=== PATIENT | female | born 1985 | race African-American/Black ===

== ENCOUNTER 2018-06-08 22:20 | Emergency (ER) | payer MEDICAID ==
[~2018-06-08] VITALS: Ht 162.6 cm; Wt 90.9 kg
[2018-06-08 22:39] VITALS: BP 112/66; Ht 162.6 cm; Wt 90.9 kg
[2018-06-08 23:36] LABS: BASOPHILS 0.1 % (0-2); EOSINOPHILS 1.6 % (0-7); HEMATOCRIT 32.4 % (36.0-48.0); HEMOGLOBIN 10.4 g/dL (12-16); IMMATURE GRANULOCYTES 0.3 % (0-5); LYMPHOCYTES 25.4 % (15-50); MCH 25.9 pg (26.0-34.0); MCHC 32.1 g/dL (31.0-37.0); MCV 80.6 fL (80.0-100.0); MEAN PLATELET VOLUME 10.6 fL (7.4-10.4); MONOCYTES 5.1 % (2-11); NEUTROPHILS 67.5 % (40-80); PLATELET COUNT 233 10x3/uL (130-400); RBC 4.02 10x6/uL (4.00-5.40); RDW 14.2 % (11.5-14.5); WBC 7.5 10x3/uL (4.8-10.8)
[2018-06-08 23:49] LABS: APPEARANCE HAZY (CLEAR); BILIRUBIN NEGATIVE (NEGATIVE); COLOR YELLOW (YELLOW); GLUCOSE NEGATIVE (NEGATIVE); KETONE NEGATIVE (NEGATIVE); NITRITE NEGATIVE (NEGATIVE); PH 6.5 (5.0-6.0); PROTEIN NEGATIVE (NEGATIVE); SPECIFIC GRAVITY 1.015 (1.005-1.020); UROBILINOGEN NORMAL (NORMAL)
[2018-06-08 23:52] LABS: RED CELLS - URINE 0-5 /hpf (0-5)
[2018-06-08 23:52] LABS: ALBUMIN 3.1 g/dL (3.4-5.0); ALKALINE PHOSPHATASE 67 U/L (46-116); ALT (SGPT) 10 U/L (10-68); CALC OSMOLALITY 276 mosm/kg (275-300); CALCIUM 8.9 mg/dL (8.5-10.1); CARBON DIOXIDE 26.7 mmol/L (21.0-32.0); CHLORIDE - SERUM 105 mmol/L (98-107); CREATININE - SERUM 0.8 mg/dL (0.6-1.3); GLUCOSE 84 mg/dL (74-106); POTASSIUM - SERUM 3.2 mmol/L (3.5-5.1); PROTEIN - SERUM 7.5 g/dL (6.4-8.2); SODIUM 141 mmol/L (136-145); UREA NITROGEN 5 mg/dL (7-18); eGFR NON AFRICAN AMERICAN 89 mL/min (90-120)
[2018-06-08 23:53] LABS: AMORPHOUS SEDIMENT >1+ /lpf (NONE SEEN); BACTERIA MODERATE /hpf (NONE SEEN); GRANULAR CAST 0-5 /lpf (NONE SEEN); HYALINE CAST OCC /lpf (NONE SEEN); MUCUS >1+ /lpf (NONE SEEN)
[2018-06-09 00:27] LABS: HCG - QUANTITATIVE (MATERNAL) 28685 mIU/mL
== END 2018-06-09 00:54 | disposition left against medical advice (07) ==
LOC: D.ER 22:20
PROVIDERS: Emergency Medicine
DX: O26.851 Spotting complicating pregnancy, first trimester (principal); Z3A.14 14 weeks gestation of pregnancy; W01.0XXA Fall on same level from slipping, tripping and stumbling without subsequent striking against object, initial encounter; Y93.89 Activity, other specified; Y92.89 Other specified places as the place of occurrence of the external cause

== ENCOUNTER 2018-12-04 14:39 | Inpatient (IN) | payer MEDICAID ==
[~2018-12-04] VITALS: Ht 170.2 cm; Wt 103.4 kg
[2018-12-04 15:23] VITALS: BP 110/69; Ht 170.2 cm; Wt 103.4 kg
[2018-12-04 15:29] LABS: HEMATOCRIT 33.2 % (36.0-48.0); HEMOGLOBIN 10.7 g/dL (12-16); MCH 25.7 pg (26.0-34.0); MCHC 32.2 g/dL (31.0-37.0); MCV 79.8 fL (80.0-100.0); MEAN PLATELET VOLUME 11.3 fL (7.4-10.4); RBC 4.16 10x6/uL (4.00-5.40); RDW 16.7 % (11.5-14.5); WBC 8.3 10x3/uL (4.8-10.8)
[2018-12-04 16:37] LABS: APPEARANCE CLEAR (CLEAR); COLOR YELLOW (YELLOW); GLUCOSE NEGATIVE (NEGATIVE); KETONE NEGATIVE (NEGATIVE); NITRITE NEGATIVE (NEGATIVE); PROTEIN NEGATIVE (NEGATIVE); SPECIFIC GRAVITY 1.015 (1.005-1.020); UROBILINOGEN NORMAL (NORMAL)
[2018-12-04 16:38] LABS: BACTERIA MODERATE /hpf (NONE SEEN); BILIRUBIN NEGATIVE (NEGATIVE); RED CELLS - URINE 0-5 /hpf (0-5); WHITE CELLS - URINE 0-5 /hpf (0-5)
[2018-12-05 07:27] LABS: RAPID PLASMA REAGIN Non Reactive (Non Reactive)
[2018-12-06 15:15] VITALS: BP 93/58
--- NOTE | 2018-12-06 15:18 | NUR ---
RCVD PT FROM PACU. PT IS AAOX3. DENIES FEELING IN BLE AND DENIES PAIN AT THIS TIME. NS WITH 20 U PITOCIN SET TO INFUSE AT 125ML/HR. VSS. FUNDUS FIRM, 2/U WITH NO LOCHIA NOTED ON PERIPAD OR CHUCKS. STONE DRAINING TO GRAVITY. I.S. AT BEDSIDE. PT DENIES NEEDS. BED LOW, WHEELS LOCKED, CALL LIGHT AND PHONE WITHIN REACH, SIDE RAILS UP X2.
[2018-12-06 15:34] VITALS: BP 105/57
[2018-12-06 15:49] VITALS: BP 107/51
--- NOTE | 2018-12-06 15:50 | NUR ---
PT REPORTS PAIN 9/10 DESCRIBED CRAMPING. DILAUDID 2 MG AND TORADOL 30MG GIVEN SIVP PER ORDERS. SEE EMAR FOR ADMINISTRATION. PT TOLERATED WELL. DENIES FURTHER NEEDS AT THIS TIME.
[2018-12-06 16:19] VITALS: BP 97/55
[2018-12-06 16:34] VITALS: BP 101/63
--- NOTE | 2018-12-06 16:36 | NUR ---
PAIN REASSESSMENT COMPLETED. PT RATES PAIN 2/10 AND TOLERABLE. FUNDUS FIRM, 2/U. QUARTER SIZE CLOT NOTED SITTING ON PERIPAD. PAD CHANGED. NO POOLING OF BLOOD NOTED UNDER PT OR EXPRESSED ON MASSAGE. INFANT TRANSPORTED TO ROOM VIA OPEN CRIB PER FOB AT THIS TIME. PT DENIES FURTHER NEEDS. WILL CONT. TO MONITOR.
--- NOTE | 2018-12-06 17:05 | NUR ---
ROUNDS MADE. PT DENIES NEEDS. FUNDUS REMAINS FIRM, ML, U/U. NO CLOTS EXPRESSED ON MASSAGE. SCANT LOCHIA RUBRA NOTED TO PERIPAD. PAD CHANGED.
--- NOTE | 2018-12-06 18:26 | NUR ---
ROUNDS MADE. PT DENIES PAIN OR NEEDS. WILL CONTINUE TO MONITOR.
--- NOTE | 2018-12-06 19:08 | NUR ---
ICE WATER AND APPLE JUICE PROVIDED PER PT REQUEST. FRESH ICE PACK PLACED ON ABD. SCD'S CONNECTED TO PUMP AND PUMP FUNCTIONING PROPERLY. PT DENIES FURTHER NEEDS AT THIS TIME.
[2018-12-06 19:49] VITALS: BP 114/62
--- NOTE | 2018-12-06 19:49 | NUR ---
INTO ROOM FOR PT. ASSESSMENT. PT. LYING ON BACK WITH HOB AT 30 DEGREES. PT. CHEERFUL AND VISITING WITH FRIENDS AND FAMILY IN ROOM. INFANT IN ROOM BEING HELD BY DIFFERENT VISITORS. STONE PATENT AND DRAINING. SCDS ON AND FUNCTIONAL. ABD. DRESSING DRY AND INTACT. LOCHIA RUBRA SCANT. BREATH SOUNDS CLEAR AND BOWEL SOUNDS HYPOACTIVE. ICE CAP NOTED TO DRESSING. PT. ENCOURAGED TO COUGH AND DEEP BREATH. RATES PAIN A 7 OF 10 ON PAIN SCALE. PT. ASLEEP AT INTERVALS. ENCOURGED PT. TO EAT CLEAR LIQUIDS AND DRINK. REQUESTED JELLO AND APPLEJUICE. SAME SERVED.
--- NOTE | 2018-12-06 19:58 | NUR ---
DILAUDID 2MG GIVEN SLOW IVP OVER 2 MINUTES. STONE DRAINAGE BAG EMPTIED OF 500CC OF CONCENTRATED URINE. INCENTIVE SPIROMETER PRESENTED TO PT. . STARTED TO GIVE PT. INSTRUCTIONS AND PT. STATED THAT SHE KNEW HOW TO USE ALREADY. HANDED DEVICE TO PT. AND PT. GAVE RETURN DEMONSTRATION AND ACHIEVED UP TO 2000 ON METER. ENCOURAGED TO USE HOURLY WHILE AWAKE. PT. STATED UNDERSTANDING. ADDITIONAL JELLO SERVED TO PT. ENCOURAGE PT. TO TRY AND REST WHILE COMPANY IS OUT OF ROOM. STATES SHE IS SLEEPY AT THIS TIME AND REQUESTED LIGHTS DIMMED. SAME DONE. SIDE RAILS UP X2 AND CALL LIGHT WITHIN REACH.
--- NOTE | 2018-12-06 20:36 | NUR ---
INTO PT. ROOM WITH INFUSION PUMP ALARMING. PT. LYING WITH EYES CLOSED AND RESPIRATIONS UNLABORED. INFUSION PUMP CHECKED AND RESTARTED. PT. DOES NOT AROUSE TO THIS NURSE IN ROOM.
--- NOTE | 2018-12-06 21:20 | NUR ---
PT. ASLEEP BUT AWAKENED TO THIS NURSE IN ROOM. INFORMED PT. THAT SHE NEEDED TO CHANGE POSITIONS FROM BACK TO LT SIDE. MINIMAL ASSISTANCE NEEDED. SUPPORTED WITH PILLOWS. WHEN PT. TURNED SHE STATED THAT SHE FELT SOMETHING VAGINAL COMING OUT. DONALD PAD CHANGED WITH BLOOD CLOTS NOTED ON PAD. PAD WAS NOT SATURATED.
--- NOTE | 2018-12-06 22:05 | NUR ---
LYING IN LT TILT. HOLDING AND FEEDING HER A BOTTLE OF FORMULA.
--- NOTE | 2018-12-06 22:46 | NUR ---
MALE IN ROOM HOLDING . TORADOL GIVEN IVP OVER 2 MINUTES. RATES PAIN 0 OF 10 AT THIS TIME. ADDITIONAL JELLO SERVED TO PT. SCDS ON AND FUNCTIONAL. STONE PATENT AND DRAINING. PT. REMARKS THAT SHE IS TIRED OF BEING IN THE BED. INFORMED OF POC FOR REMOVAL OF STONE AND SALINE LOCKING IV. PT. STATES UNDERSTANDING. ENCOURAGED USE OF INCENTIVE SPIROMENTER AND PT. ABLE TO ACHIEVE UP TO 2000 X2 . ICE CAP REFILLED TO PLACE ON ABD. DRESSING AREA.
--- NOTE | 2018-12-06 23:20 | NUR ---
100CC IN URINE METER. PT. DENIES ANY PAIN AT THIS TIME. MALE CONTINUES TO HOLD INFANT ON SOFA. SCDS ON AND FUNCTIONAL.
[2018-12-07] VITALS (7 sets, daily range): BP systolic 105–122; BP diastolic 62–72
--- NOTE | 2018-12-07 00:02 | NUR ---
PT. SITTING UP IN BED WITH HOB AT 45 DEGREES, PUMPING BREAST. VITAL SIGNS OBTAINED. PT. ASKED AGAIN ABOUT WHEN SHE WOULD BE UP WALKING. DISCUSSED WITH PT. AGAIN ABOUT THE PLAN FOR SALINE LOCKING IV AND TAKING STONE CATH. OUT. AND A TIMEFRAME GIVEN. PT. STATES UNDERSTANDING. MALE STILL IN ROOM WITH PT. INFANT IN NBN FOR THE NIGHT PER PT. REQUEST.
--- NOTE | 2018-12-07 01:55 | NUR ---
PT. ASLEEP AND AWAKENED TO CONVERT IV TO SALINE LOCK. STONE CATH. DISCONTINUED WITH ADDITIONAL 250CC OUTPUT IN URINE METER. PT. C/O CRAMPING WHEN SHE AWAKENS AND ASKING FOR PAIN MED. DONALD PAD WITH MOD. LOCHIA AND CHANGED.
--- NOTE | 2018-12-07 02:10 | NUR ---
WHEN THIS NURSE ENTERS ROOM , PT. ASLEEP AGAIN AND AWAKENED FOR PAIN MED THAT SHE REQUESTED FOR A PAIN SCORE OF 9 FO 10. ICE WATER PROVIDED. PAIN MEDICATION GIVEN ORDERED. SIDE RAILS UP X 2. PT. INFORMED THAT SHE IS TO USE CALL LIGHT WHENEVER SHE NEEDS TO GET UP TO BATHROOM. CALL LIGHT POSITIONED WITHIN EASY REACH ON BEDSIDE TABLE. PT. TOLD WHERE CALL LIGHT LOCATED AND STATES UNDERSTANDING TO INSTRUCTIONS GIVEN. SCDS ON AND FUNCTIONAL.
--- NOTE | 2018-12-07 03:55 | NUR ---
PT. LYING ON BACK WITH HOB AT 30 DEGREES. EYES CLOSED AND RESPIRATIONS UNLABORED. PT. AWAKENED BY CALLING HER NAME. VITAL SIGNS OBTAINED. PT. BACK TO SLEEP PRIOR TO COMPLETION OF VITAL SIGNS. SIDE RAILS UP X 2 AND CALL LIGHT WITHIN REACH.
[2018-12-07 06:07] LABS: BASOPHILS 0.2 % (0-2); EOSINOPHILS 0.4 % (0-7); HEMATOCRIT 27.6 % (36.0-48.0); HEMOGLOBIN 8.7 g/dL (12-16); IMMATURE GRANULOCYTES 0.2 % (0-5); LYMPHOCYTES 14.8 % (15-50); MCH 25.6 pg (26.0-34.0); MCHC 31.5 g/dL (31.0-37.0); MCV 81.2 fL (80.0-100.0); MEAN PLATELET VOLUME 10.5 fL (7.4-10.4); MONOCYTES 5.2 % (2-11); NEUTROPHILS 79.2 % (40-80); RDW 16.4 % (11.5-14.5); WBC 9.2 10x3/uL (4.8-10.8)
[2018-12-07 06:10] LABS: PLATELET COUNT 160 10x3/uL (130-400)
--- NOTE | 2018-12-07 07:19 | NUR ---
ASSUME CARE OF THIS PATIENT. SHIFT ASSESSMENT COMPLETED. C/O / ABDOMINAL CRAMPING. 2/U FIRM MIDLINE, RUBRA MOD ON CURRENT DONALD-PAD. PLANS . INFANT IN NURSERY. CURRENTLY LAYING TOWARD LEFT SIDE. SAYS SHE HAS BEEN CHANGING POSITIONS NEEDED. SCDS REMOVED AT THIS TIME IN PREPARATION FOR AMBULATION.
--- NOTE | 2018-12-07 07:30 | NUR ---
PERCOCET 10 MG GIVEN PO AFTER DISCUSSING PAIN MANAGEMENT OPTIONS. ASSISTED UP TO BATHROOM TO VOID. FRANK OK WITH SLIGHT TEARS, ENCOURAGEMENT GIVEN. VOIDED 400 ML URINE WITH SEVERAL < 1 CM BLOOD CLOTS NOTED. PARTIAL LINEN CHANGE COMPLETED. DESIRES TO SIT ON COUCH TO FEED IN THIS TIME. CALL LIGHT PLACED IN REACH. TO CALL IF NEEDING ANYTHING.
--- NOTE | 2018-12-07 08:23 | NUR ---
SITTING ON COUCH HOLDING . SAYS HER PAIN IS GETTING BETTER NOW 05/11. NO REQUESTS.
--- NOTE | 2018-12-07 10:04 | NUR ---
RETURNED TO BED, TO NURSERY. DESIRES TO TAKE SHOWER BUT WILL REST AT THIS TIME. SAYS HER PAIN IS ABOUT 6 "I'M DOING OK RIGHT NOW". SIDE RAILS UP X 2, CALL LIGHT IN REACH.
--- NOTE | 2018-12-07 10:20 | NUR ---
DR DORANTES HERE AND VISITED PT. V.O. RECIEVED TO CHANGE TORADOL TO PO INSTEAD OF IVP.
--- NOTE | 2018-12-07 10:30 | OP ---
PATIENT NAME: MICKI INFANTE MEDICAL RECORD: [id number] :86 LOCATION:[id number] ADMISSION DATE:12/04/18 SURGEON: AVINASH DORANTES MD DATE OF OPERATION: 12/06/2018 PREOPERATIVE DIAGNOSES: 1. at 39 weeks gestations. 2. Nonreassuring tracing. 3. Meconium stained fluid. 4. Undesired fertility. POST-DELIVERY DIAGNOSES: 1. at 39 weeks gestations. 2. Nonreassuring tracing. 3. Meconium stained fluid. 4. Mother delivered. 5. Tight nuchal cord. 6. Undesired fertility. PROCEDURES: 1. Primary low transverse section. 2. Bilateral tubal ligation using a [place] technique. SURGEON: Avinash Dorantes MD DOUBLE NEEDLE OPERATOR LOCKSTITCH: Jc Cyr. ANESTHESIA: Continuous lumbar epidural. FINDINGS: Viable female infant, tight nuchal cord times 1. Vertex presentation, Apgars 9 and 9, weight 7 pounds 10 ounces. Placenta is unremarkable. Fluid is meconium stained. The tubes, ovaries, and uterus unremarkable. SPECIMENS REMOVED: 1. Placenta. 2. Bilateral tubes. SPECIMEN DISPOSITION: 1 and 2 to pathology. ESTIMATED BLOOD LOSS: 800 cc. FLUIDS: 1000 cc of lactated Ringer's. URINE OUTPUT: 500 cc of clear urine. COMPLICATIONS: None. DRAINS: [place] to gravity. COMPLICATIONS: None. INDICATIONS: The patient is a 33-year-old female being induced at term. The patient has had repetitive late decelerations and bradycardic event. The patient is counseled and is undergoing a primary section for OPERATIVE REPORT [id number] MICKI INFANTE intolerance to labor. The patient also has undesired fertility. Risks, benefits, and alternatives to tubal have been described. The patient understood all risks and benefits and wishes to proceed. DESCRIPTION OF PROCEDURE: After informed consent was assured, the patient was taken to the operating room where anesthetic was obtained without difficulty. The patient now prepped and draped in the usual sterile fashion. Anesthetic was assessed and found to be adequate. A low transverse incision was made and the abdomen was entered using a Pelosi technique. An Hosea O ring was inserted and tightened. A low transverse hysterotomy was performed after development of a bladder flap. was delivered on to the abdomen atraumatically. Cord was doubly clamped and cut and was passed to the attendant. The placenta was delivered via Crede maneuver. Uterus exteriorized, cleared of all clots and debris and closed with a running locked stitch of chromic. [id number] stitches were applied along the lower segment. Due to the oozing along the peritoneal edges and unsatisfactory hemostasis, potato dust was placed on the hysterotomy incision and hemostasis was obtained. The uterus was deflected forward and the right tube identified, elevated with [place] clamp and a window developed in the antimesenteric portion. Two ligatures were passed through here, tied proximally and distally and the intervening segments of tube were removed. Ostium was cauterized. This was repeated on the contralateral side. Again, a window was developed with 2 ligatures placed and tied. The segment of tube was excised and the ostium cauterized. Uterus was now returned to the abdomen. Inspection of the stumps revealed adequate hemostasis. Peritoneum was reapproximated in the midline. The fascia was closed with a running stitch of looped PDS. Subcutaneous tissues were irrigated, bleeding vessels cauterized, and the skin was reapproximated with lauren. Sterile dressing is applied. Sponge, lap, and needle counts were correct times 2. TRANSINT:[id number] Voice Confirmation ID: [id number] DOCUMENT ID: [id number] AVINASH DORANTES MD at 1030 CC: [id number] DICTATION DATE: 12/06/18 1438 ROOF FITTER: 12/06/182031 ADM IN [facility] [address] [id number]
--- NOTE | 2018-12-07 11:55 | NUR ---
SITTING UP IN BED. AND VISITORS IN ROOM. STILL WITH 6/10 ABD CRAMPING STATES "I'M OK. I DON'T NEED ANYTHING" WHEN ASKED IF SHE NEEDED PAIN MEDICATION. ENCOURAGED NOT TO WAIT UNTIL PAIN GETS TO BAD, EXPLAINING THAT SOMETIMES IT WILL TAKE LONGER TO HELP. VERBALIZED UNDERSTANDING AND WILL ASK IF ANY MEDICATION IS NEEDED. PLANS LUNCH, SHOWER AND AMBULATION IN [place]. INCENTIVE SPIROMETER USED X 3. SAYS SHE HAS BEEN USING "BUT NOT LATELY". UP AD KARLA TO BATHROOM. SIDERAILS UP X 2, CALL LIGHT IN REACH.
--- NOTE | 2018-12-07 13:17 | NUR ---
REQUESTED PAIN MEDICATION AND TO SHOWER. C/0 8/10 UPPER ABDOMINAL CRAMPING. ENCOURAGE AMBULATED AND TALKED ABOUT PASSING GAS AND METHODS TO HELP RELIEVE. PERCOCET 10 MG GIVEN PO. ITEMS GIVEN FOR SHOWER. WILL ASSIST WITH REMOVING OF DRESSING WHILE IN SHOWER. LINEN CHANGE FINISHED.
--- NOTE | 2018-12-07 13:20 | NUR ---
VOIDED 650 ML URINE, SLIGHTLY BLOOD TINGE FROM LOCHIA.
--- NOTE | 2018-12-07 14:30 | NUR ---
AMBULATED IN [place] TO NURSERY. TOLERATED WELL. NO REQUESTS.
--- NOTE | 2018-12-07 15:30 | NUR ---
UP IN ROOM. SAYS PAIN IS A LITTLE BETTER 5/10. "I'M OK WHEN I'M NOT MOVING". IN ROOM, VISITORS AT BEDSIDE. SIDE RAILS UP X 2. CALL LIGHT IN REACH. REQUESTED JELLO WHICH WAS GIVEN.
--- NOTE | 2018-12-07 16:13 | NUR ---
1/U FIRM MIDLINE, INCISION INTACT WITH SHARA, WITHOUT ERRYTHEMA OR DRAINAGE. INSTRUCTED ON USE OF DONALD-PAD OVER INCISION AND TO CHANGE FREQ. VS OBTAINED. NOTED FLUCTUATION IN HR BETWEEN 109-123. PT SAYS SHE OCCASIONALLY FEELS SOB BUT CANNOT DETERMINE IF HER HR IS FEELING FAST. DR DORANTES NOTIFIED. ORDERS RECEIVED FOR EKG. PT UP AD KARLA. VISITORS IN ROOM. IN ROOM, DENIES NEEDING ANYTHING. RATES PAIN 5/10. "I'M OK WHEN I'M NOT MOVING AROUND ALOT."
--- NOTE | 2018-12-07 16:53 | NUR ---
SCHEDULED TORADOL GIVEN. SAYS SHE IS TRYING NOT TO TAKE MEDICATION. SAYS THE PAIN IS IN UPPER ABDOMEN, NOT PASSING GAS, ENCOURAGED TO AMBULATE AND TALKED ABOUT LAYING IN LLD POSITION. OFFERED TO GET ORDER FOR SIMETHICONE. DECLINES AT THIS TIME. IN BED WITH HER AT THIS TIME. HAS BEEN BOTTLEFEEDING. SIDE RAILS UP X 2, CALL LIGHT IN REACH.
--- NOTE | 2018-12-07 16:53 | NUR ---
SALINE LOCK WOULD NOT FLUSH, UNABLE TO GET BLOOD RETURN. SALINE LOCK DC'D AT THIS TIME. INSTRUCTED PT THAT IF IV WAS NEEDED THEN WILL RESTART. CURRENTLY NOT ON IV MEDS OR IV FLUIDS.
--- NOTE | 2018-12-07 17:18 | NUR ---
RESPIRATORY THERAPY HERE TO DO EKG.
--- NOTE | 2018-12-07 17:46 | NUR ---
ACTIVE BS X 4, ABD SOFT, SLIGHT UPPER TYMPANY, POSITIONED TO LEFT SIDE WITH RIGHT LEG PULLED UP. BURPED AFTER POSITIONING. CONTACTED DR DORANTES WITH RESULTS OF EKG. ALSO INFORMED OF GAS PAIN, ORDERS RECEIVED. INFANT IN CRIB AND PLACED AT BEDSIDE. SIDE RAILS UP X 2, CALL LIGHT IN REACH.
--- NOTE | 2018-12-07 18:10 | NUR ---
SITTING UP IN BED INFANT. STATES "JUST I WAS ABOUT TO PASS GAS SHE STARTED CRYING SO I HAD TO GET UP". REMINDED THAT SIMETHICONE IS AVAILABLE IF NEEDED AND ENCOURAGED TO TRY LLD WHEN DONE FEEDING INFANT. REQUESTED JELLO WHICH WAS GIVEN. FRESH WATER AT BEDSIDE.
--- NOTE | 2018-12-07 19:14 | NUR ---
PT. AWAKE AND ORIENTED. HOLDING WHICH IS SLEEPING. CHEERFUL. BREATH SOUNDS CLEAR AND BOWEL SOUNDS ACTIVE. PT. REPORTS THAT SHE HAS NOT PASSED "GAS" YET BUT FEELS IT WILL HAPPEN SOON. STATES SHE HAS BEEN WALKING TODAY. ENCOURAGED A WALK IN THE HALLWAY PRIOR TO GOING TO BED FOR THE NIGHT. RATES PAIN A 6 OF 10 BUT STATES "I KNOW THAT IT IS JUST GAS". DISCUSS WITH PT. THAT SHE HAS SIMETHICONE ORDERED AND ASKED IF SHE WOULD LIKE TO TRY TAKING ONE FOR RELIEF. PT. RECEPTIVE. PT. STATES THAT SHE PLANS TO GET UP AND WALK IN ROOM ALSO. DENIES ANY PAIN IN LOWER EXTREMITIES. ABD. INCISION WITHOUT REDNESS NOR DRAINAGE. SHARA NOTED INTACT. ABD. SOFT TO TOUCH.
--- NOTE | 2018-12-07 19:25 | NUR ---
[employer] ARCHITECT CALLED AND INFORMED OF NEED FOR SIMETHICONE FOR PT.
--- NOTE | 2018-12-07 19:28 | NUR ---
PT. INFORMED THIS NURSE WAS WAITING FOR BENEFITS CLERK TO BRING HER MEDICATION. PT. STANDING BESIDE BED AND STATES UNDERSTANDING.
--- NOTE | 2018-12-07 20:25 | NUR ---
PT. STANDING BESIDE BED. SMILES AND REPORTS THAT SHE IS "PASSING GAS SINCE LAST MEDICATION GIVEN. LOTS OF IT". DENIES ANY NEEDS AT THIS TIME.
--- NOTE | 2018-12-07 21:58 | NUR ---
PT. SITTING ON SIDE OF BED HOLDING . STATES THAT GAS FELT LIKE IT WAS COMING BACK AFTER EATING SALAD. PLANS TO LIE ON SIDE AFTER INFANT IS CONSOLED. JELLO SERVED. DENIES ANY FURTHER NEEDS.
--- NOTE | 2018-12-07 22:51 | NUR ---
PT. REPORTS THAT SHE IS HAVING ABD. DISCOMFORT AND DESIRES PAIN MEDICATION. RATES PAIN A 7 OF 10 ON PAIN SCALE. STATES SHE FEELS THAT SHE WAITED TO LONG TO TAKE MEDS. VITAL SIGNS OBTAINED. ASLEEP IN OPEN CRIB AT BEDSIDE. DISCUSSED WITH PT. , MEDICATIONS THAT ARE ORDERED TO INCLUDE SLEEP AID. PT. STATES THAT SHE WOULD LIKE TO TAKE THE AMBIEN.
--- NOTE | 2018-12-07 22:54 | NUR ---
PAIN MED AND TORADOL GIVEN ORDERED. DISCUSSED WITH PT. THAT SIMETHICONE IS DUE AT 2330 AND THIS NURSE WOULD ALSO BRING AMBIEN AT THAT TIME. INFORMED PT. THAT WOULD PREFER NOT TO GIVE THE AMBIEN AT THE SAME TIME THE PERCOCET 10MG. PT. STATED UNDERSTANDING. OFFERED TO PLACE SCDS ON PT. LEGS. PT. INQUIRED WHY THE SCDS ARE IMPORTANT. INFORMED OF THE REASON FOR THE SCDS AND PT. STATES THAT SHE DOES NOT FEEL THAT SHE NEEDS THEM AND SHE HAS BEEN VERY ACTIVE TODAY AND ALSO GETTING UP TO BATHROOM. INFORMED PT. THAT AT ANY TIME THAT SHE CHANGES HER MIND, THIS NURSE WOULD GLADLY APPLY SCD SLEEVES FOR HER. PT. STATED UNDERSTANDING. INFANT TO NBN PER PT. REQUEST.
--- NOTE | 2018-12-07 23:35 | NUR ---
PT. REPORTS THAT PAIN IS 2 OF 10 AT THIS TIME AND SHE IS SLIGHTLY DROWSY. INQUIRED IF PT. STILL DESIRED AMBIEN AND PT. RESPONDED THAT SHE DID . AMBIEN AND MYLICON ADMINISTERED ORDERED. SIDE RAILS UP X 2. CALL LIGHT WITHIN REACH. ENCOURAGED PT. TO LIE ON HER SIDES AND NOT HER BACK. PT. STATES UNDERSTANDING TO ALL INSTRUCTIONS. ENCOURAGED PT. TO CONTINUE HER VITAMINS ORDERED UNTIL SEEN BY MD IN OFFICE, HAVE SOMEONE TO HELP HER IN THE HOME FOR THE FIRST WEEK AND FOR HER TO TRY AND REST WHENEVER THE BABY WAS SLEEPING. PT. ASKED QUESTION ABOUT THE BEST WAY TO GET IN AND OUT OF BED SINCE THE HEAD OF HER BED DOES NOT RAISE. DISCUSSED TURNING TO HER SIDE AND USE HER ELBOW TO HELP PUSH HER UP AND TO USE PILLOWS TO PROP HER UP FOR COMFORT WHILE SLEEPING. PT. STATED UNDERSTANDING TO ALL. PT. STATES SHE DOES NOT HAVE A RECLINER AT HOME. LIGHTS DIMMED IN ROOM PER PT. REQUEST. ICE WATER REFILLED FOR PT.
--- NOTE | 2018-12-08 01:20 | NUR ---
LYING ON LT SIDE WITH EYES CLOSED. RESPIRATIONS UNLABORED.
[2018-12-08 03:05] VITALS: BP 98/83
--- NOTE | 2018-12-08 03:05 | NUR ---
PT. AWAKENED FOR VITAL SIGNS. LYING ON LT SIDE. AWAKE ONLY BRIEFLY AND BACK TO SLEEP. CONTINUES LYING ON LT SIDE. TV REMAINS ON IN ROOM WITH VOLUME MODERATELY LOUD. SIDE RAILS UP X 2. CALL LIGHT WITHIN REACH.
--- NOTE | 2018-12-08 04:25 | NUR ---
LYING ON LT SIDE WITH EYES CLOSED. RESPIRATIONS UNLABORED.
--- NOTE | 2018-12-08 05:20 | NUR ---
PT. AWAKENED FOR TORADOL ADMINISTRATION. PT. AWAKE BRIEFLY AND RETURNED TO SLEEP. POSITIONED ON LT SIDE. RESPIRATIONS UNLABORED.
[2018-12-08 07:56] VITALS: BP 110/64
--- NOTE | 2018-12-08 08:09 | NUR ---
ASSESSMENT DONE. PT UP AND ABOUT IN ROOM. VERBAL RESPONSES APPRO TO QUESTIONS. STATES THAT IS PASSING FLATUS. WHEN QUESTIONED -RATES PAIN A 6 ON SCALE OF 0-10. PT STATES THAT SHE WOULD LIKE PAIN MEDICACATION WHEN QUESTIONED. INCISION APPEARANCE WNL.
--- NOTE | 2018-12-08 09:30 | NUR ---
denies needs. up and about in room. states that pain is better- rates 2 on scale of 0-10.
--- NOTE | 2018-12-08 10:26 | NUR ---
Ranjana Connolly 12/08/17 LE@ 9:25 S: Patient states she has been giving both breast and bottle because her milk isn't in yet. Denies questions or concerns. Preferred to give formula for this feeding. Verbally agrees to ask nursery staff for help as needed with . Thanked CLC for advice and checking up with her regarding . O: Patient sitting up in bed providing formula for feeding. FOB sleep on sofa. Asked how can I help with ? Explained normal feeding patterns, breastmilk composition, benefits of skin to skin, feeding cues, position, and how to verify is latched correctly at the breast. does take time, practice, and patience in the beginning. It is normal to be concern about what is taking in when at the breast. being content following feedings and wet/dirty diapers are a sign infant is getting enough. Your body will continue to make what infant needs as long as is placed to the breast for every feeding. Supply and demand what baby takes out your body will make more of. Every missed feeding at the breast tells your body milk isn't needed at that time. Your body will adjust to accommodate how often is placed to the breast. Since infant is getting colostrum right now, your body only needs small amount to satisfy . This amount will increase by volume for feeding to meet needs. Reassured patient her body is making colostrum for . Please ask for help as needed with , including latching. A: Patient feeding preference is both formula and breast due to "her milk isn't in yet. P: Continue to promote during hospital visit. Valerie Chapa, [facility]
--- NOTE | 2018-12-08 10:59 | NUR ---
pt questioning when dr rowan will be making rounds- explained that dr rowan is also doing surg today but will make rounds. ask if she would like to shower- towels provided.
[2018-12-08] MEDS ORDERED: PERCOCET 7.5/321 TAB PO (12:57)
[2018-12-08] MEDS ORDERED: IBUPROFEN800 MG PO (13:14)
--- NOTE | 2018-12-08 13:50 | NUR ---
THIS RN TO PT'S ROOM FOR DISCHARGE TEACHING. MULTIPLE VISITORS AT BEDSIDE. INCISION CARE TEACHING PERFORMED, SIGNS AND SYMPTOMS TO REPORT REVIEWED, PRESCRIPTIONS FOR MOTRIN 800MG TO BE TAKEN EVERY 8HRS FOR THE NEXT 2 DAYS AND THEN Q 8HRS PRN FOR PAIN, PERCOCET 7.5MG TO BE TAKEN EVERY 6 HRS NEEDED FOR PAIN. FOLLOW UP APPOINT CARD PROVIDED W/SCHEDULED APPT. POST DELIVERY WARNING SIGNS INFO PROVIDED. FOLLOW [facility] INFO GIVEN. DISCHARGE PAPERS PROVIDED W/TEACHING. SIGNED COPY OBTAINED. COPY OF PRESCRIPTIONS PLACED ON PT'S CHART. PT VERBALZIES UNDERSTANDING OF DISCHARGE INSTRUCTIONS, PATIENT AND FAMILY DENY QUESTIONS AT THIS TIME. REQUEST MADE THAT PATIENT RING HER CALL LIGHT WHEN SHE IS READY FOR DISCHARGE. PT IS AGREEABLE.
--- NOTE | 2018-12-08 14:20 | NUR ---
discharged with infant- to auto via w/c per sefeirno infante rn.
== END 2018-12-08 14:20 | disposition home or self-care (01) | DRG 785 ==
LOC: D.LD 14:39
PROVIDERS: ADMIT Obstetrics & Gynecology
PROC: 10D00Z1 Extraction of Products of Conception, Low, Open Approach (ICD-10-PCS; 2018-12-06)
PROC: 0UT70ZZ Resection of Bilateral Fallopian Tubes, Open Approach (ICD-10-PCS; 2018-12-06)
PROC: 10907ZC Drainage of Amniotic Fluid, Therapeutic from Products of Conception, Via Natural or Artificial Opening (ICD-10-PCS; principal; 2018-12-06 13:32)
DX: O76 Abnormality in fetal heart rate and rhythm complicating labor and delivery (principal); Z3A.39 39 weeks gestation of pregnancy; Z37.0 Single live birth; O69.1XX0 Labor and delivery complicated by cord around neck, with compression, not applicable or unspecified; O99.214 Obesity complicating childbirth

== ENCOUNTER 2019-12-02 20:00 | Emergency (ER) | payer MEDICAID ==
[~2019-12-02] VITALS: Ht 170.2 cm; Wt 90.9 kg
[~2019-12-02 20:00] MED LIST: IBUPROFEN800 MG PO; PERCOCET 7.5/321 TAB PO
[2019-12-02 20:13] VITALS: Ht 170.2 cm; Wt 90.9 kg
[2019-12-02] MEDS ORDERED: MUCINEX DM ER1 EAC1 PO (20:49)
[2019-12-02] MEDS ORDERED: TAMIFLU75 MG PO (20:49)
[2019-12-02 21:35] VITALS: BP 125/66
== END 2019-12-02 21:25 | disposition home or self-care (01) ==
LOC: D.ER 20:00
DX: J11.1 Influenza due to unidentified influenza virus with other respiratory manifestations (principal)

== ENCOUNTER 2020-03-23 21:42 | Emergency (ER) | payer MEDICAID ==
[~2020-03-23] VITALS: Ht 170.2 cm; Wt 95.5 kg
[~2020-03-23 21:42] MED LIST changes: +MUCINEX DM ER1 EAC1 PO; +TAMIFLU75 MG PO
[2020-03-23 21:55] VITALS: Ht 170.2 cm; Wt 95.5 kg
[2020-03-23] MEDS ORDERED: NAPROSYN500 MG PO (22:49)
[2020-03-23 23:00] VITALS: BP 130/85
== END 2020-03-23 22:57 | disposition home or self-care (01) ==
LOC: D.ER 21:42
DX: G56.22 Lesion of ulnar nerve, left upper limb (principal); G56.02 Carpal tunnel syndrome, left upper limb

== ENCOUNTER 2021-05-30 15:00 | Outpatient (CLI) | payer BC ==
[2020-03-23 21:55] VITALS: BMI 32.9
[~2021-05-30 15:00] MED LIST changes: +NAPROSYN500 MG PO
== END 2021-05-30 23:59 ==
LOC: D.MAMMO 15:00
PROVIDERS: ATTEND Family Medicine
DX: Q83.1 Accessory breast (principal)